=== PATIENT | female | born 1960 | race Caucasian/White ===

== ENCOUNTER 2020-12-08 15:37 | Inpatient (IN) | payer BC ==
[~2020-12-08] VITALS: Ht 154.9 cm; Wt 81.4 kg
[~2020-12-08 15:37] MED LIST: MUPI15CR TP
[2020-12-08 16:43] LABS: BASOPHILS % (AUTO) 0.9 % (0-1); EOSINOPHILS % (AUTO) 0.6 % (0-6); LYMPHOCYTES # (AUTO) 1.3 X10'3 (1.1-4.8); LYMPHOCYTES % (AUTO) 25.8 % (21-51); MEAN CORPUSCULAR HEMOGLOBIN 16.1 PG (27.0-31.0); MEAN CORPUSCULAR HGB CONC 28.1 g/dL (33.0-36.5); MEAN CORPUSCULAR VOLUME 57.3 FL (78-98); MEAN PLATELET VOLUME 8.1 FL (7.4-10.4); MONOCYTES # (AUTO) 0.4 X10'3 (0-0.9); MONOCYTES % (AUTO) 8.3 % (2-12); NEUTROPHILS # (AUTO) 3.2 X10'3 (1.8-7.7); NEUTROPHILS % (AUTO) 64.4 % (42-75); PLATELET COUNT 402 X10'3 (140-440); RED BLOOD COUNT 2.71 X10'6 (4.20-5.60); RED CELL DISTRIBUTION WIDTH 19.6 % (11.5-14.5)
[2020-12-08 16:48] LABS: HEMOGLOBIN 4.4 g/dl (12.0-16.0)
[2020-12-08 16:49] LABS: HEMATOCRIT 15.5 % (35.0-45.0)
[2020-12-08 16:59] LABS: ALANINE AMINOTRANSFERASE 13 U/L (12-78); ALBUMIN 3.8 G/DL (3.4-5.0); ALBUMIN/GLOBULIN RATIO 1.1 (1.1-1.5); ALKALINE PHOSPHATASE 60 IU/L (46-116); ANION GAP 11 (8-16); ASPARTATE AMINO TRANSFERASE 14 U/L (10-37); BILIRUBIN,TOTAL 0.4 MG/DL (0.1-1.0); BLOOD UREA NITROGEN 17 MG/DL (7-18); BUN/CREATININE RATIO 17.3 (6.6-38.0); CALCIUM 8.5 MG/DL (8.5-10.1); CHLORIDE 105 MMOL/L (99-107); CREATININE 0.98 MG/DL (0.40-0.90); GLUCOSE 110 MG/DL (70-104); POTASSIUM 3.9 MMOL/L (3.5-5.1); SODIUM 139 MMOL/L (135-145); TOTAL PROTEIN 7.4 G/DL (6.4-8.2); eGFR 58 ML/MIN
[2020-12-08 17:45] LABS: PARTIAL THROMBOPLASTIN TIME 22 SECONDS (22-32)
[2020-12-08 18:18] LABS: RED BLOOD COUNT 2.69 X10'6 (4.20-5.60); RETICULOCYTE % (AUTO) 2.8 % (0.5-1.5)
[2020-12-08] MEDS ORDERED: pantoprazole 40 MG vial IV ONE (18:35)
[2020-12-08 18:53] LABS: FERRITIN 2 NG/ML (8-252)
[2020-12-08 19:01] LABS: ANISOCYTOSIS 2+; HYPOCHROMASIA 2+; MICROCYTOSIS 3+; PLATELET ESTIMATE NORMAL
--- NOTE | 2020-12-08 19:08 | NUR ---
PT IS DIFFICULT PIV PLACEMENT. PT HAD [address] AND BOTH NOT WORKING PER DAY SHIFT RN. NEW PIV TO [facility] 20G PLACED WITH ULTRASOUND. PTS DAUGHTER GREGORY AT BEDSIDE. BLOOD IS READY TO BE TRANSFUSED. CONSENT IS SIGNED. PT IS POLITE AND COOPERATIVE WITH ALL CARE. PT REPORTS NO HISTORY OF ANEMIA. STATES SOB OVER THE PAST 2 MONTHS. WORSENING OVER THE PAST WEEK. NON SMOKER
[2020-12-08] MEDS ORDERED: NO HOME MEDS (19:11)
[2020-12-08 19:15] LABS: LACTATE DEHYDROGENASE 263 U/L (81-234)
[2020-12-08 19:17] LABS: BASOPHILS % (AUTO) 0.9 % (0-1); EOSINOPHILS % (AUTO) 0.8 % (0-6); LYMPHOCYTES # (AUTO) 1.4 X10'3 (1.1-4.8); LYMPHOCYTES % (AUTO) 30.3 % (21-51); MEAN CORPUSCULAR HEMOGLOBIN 15.9 PG (27.0-31.0); MEAN CORPUSCULAR VOLUME 56.8 FL (78-98); MONOCYTES # (AUTO) 0.4 X10'3 (0-0.9); MONOCYTES % (AUTO) 8.1 % (2-12); NEUTROPHILS # (AUTO) 2.7 X10'3 (1.8-7.7); NEUTROPHILS % (AUTO) 59.9 % (42-75); PLATELET COUNT 358 X10'3 (140-440); RED BLOOD COUNT 2.74 X10'6 (4.20-5.60); RED CELL DISTRIBUTION WIDTH 19.5 % (11.5-14.5); WHITE BLOOD COUNT 4.6 X10'3 (4.5-11.0)
[2020-12-08 19:21] LABS: HEMATOCRIT 15.6 % (35.0-45.0); HEMOGLOBIN 4.4 g/dl (12.0-16.0)
[2020-12-08] MEDS ORDERED: HYDROmorphone inj. 0.5 MG/0.5 ML DISP.SYRIN IV PRN (19:30)
[2020-12-08] MEDS ORDERED: acetaminophen 325mg tablet PO PRN ×2 (19:30)
[2020-12-08] MEDS ORDERED: magnesium hydroxide 30ml (MOM) UD suspension PO PRN (19:30)
[2020-12-08] MEDS ORDERED: HYDROcodone/acetaminophen 5mg/325mg tablet PO PRN (19:30)
[2020-12-08] MEDS ORDERED: ondansetron/PF 4mg/2ml inj IV PRN (19:30)
[2020-12-08] MEDS ORDERED: diphenhydrAMINE 50 mg/ml inj IV PRN (19:30)
[2020-12-08] MEDS ORDERED: diphenhydrAMINE 25mg capsule PO PRN (19:30)
[2020-12-08] MEDS ORDERED: acetaminophen 650mg rectal suppository RC PRN (19:30)
[2020-12-08] MEDS ORDERED: bisacodyl 10mg suppository rectal RC PRN (19:30)
[2020-12-08] MEDS ORDERED: ondansetron 4mg rapidly disintigrating tab PO PRN (19:30)
[2020-12-08] MEDS ORDERED: mag hydrox/Alum hydrox/simeth 30ml oral suspension PO PRN (19:30)
[2020-12-08] MEDS ORDERED: HYDROcodone/acetaminophen 10/325mg tab PO PRN (19:30)
[2020-12-08] MEDS ORDERED: normal saline 1000ml 1,000 ML IV SCH (19:30)
[2020-12-08] MEDS ORDERED: morphine 2 MG/ML inj. syringe IV PRN ×2 (19:30)
[2020-12-08 19:56] VITALS: BP 140/59
[2020-12-08 20:04] LABS: D-DIMER 0.29 MG/L FEU (0-0.50)
[2020-12-08 20:14] VITALS: BP 129/57
[2020-12-08 20:19] LABS: CREATINE KINASE 103 U/L (26-192); LIPASE 190 U/L (73-393); MAGNESIUM 2.1 MG/DL (1.5-2.4)
--- NOTE | 2020-12-08 20:44 | NUR ---
1ST UNIT OF PRBCS STARTED. PT WILL NEED 2ND PIV FOR PROTONIX GTT. AWAITING HOSPITALIST. PT TAKES NO MEDS.
--- NOTE | 2020-12-08 20:49 | NUR ---
LAB CALLING TO [facility] THAT UNABLE TO RESULT AN A1C ON PT D/T THE LOW HGB LEVEL OF THE SAMPEL DRAWN. PT WILL NOT BE ABLE TO HAVE AN ACCURATE A1C DRAWN FOR APROX 3 MONTHS D/T GETTING BLOOD TRANSFUSION.
[2020-12-08 20:56] VITALS: BP 125/52
[2020-12-08] MEDS ORDERED: temazepam 15mg capsule PO PRN (21:00)
[2020-12-08 21:01] LABS: BANDS% (MANUAL) 2 % (0-10); EOSINOPHILS % (MANUAL) 1 % (0-6); LYMPHOCYTES % (MANUAL) 32 % (21-51); MONOCYTES % (MANUAL) 1 % (2-12); NEUTROPHILS % (MANUAL) 64 % (42-75); TOTAL CELLS COUNTED 100
[2020-12-08 21:02] LABS: ANISOCYTOSIS 2+; HYPOCHROMASIA 3+; MICROCYTOSIS 3+; PLATELET ESTIMATE NORMAL
[2020-12-08] MEDS: ferrous sulfate ER tablet 140 MG TABLET.ER PO SCH (21:23)
[2020-12-08] MEDS: pantoprazole 40MG/NS 100ML BAG 100 ML IV SCH (21:24)
[2020-12-08 21:35] LABS: CLARITY,URINE SLIGHTLY CLOUDY (Clear); COLOR,URINE YELLOW (Yellow); GLUCOSE, URINE NEGATIVE (Neg); KETONES,URINE NEGATIVE (Neg); LEUKOCYTE ESTERASE ,URINE MODERATE (Neg); NITRITES, URINE NEGATIVE (Neg); OCCULT BLOOD,URINE NEGATIVE (Neg); PROTEIN,URINE NEGATIVE (Neg); UROBILINOGEN,URINE 0.2 E.U/dL (0.2-1.0)
[2020-12-08] MEDS: docusate sod 100mg capsule PO SCH (21:35)
[2020-12-08] MEDS: metoprolol tartrate 25mg tablet PO SCH (21:35)
[2020-12-08 21:52] LABS: UA COLLECTION TYPE CLN CATCH MIDSTREAM
[2020-12-08 21:54] LABS: BACTERIA,URINE NONE SEEN /HPF (Neg); MUCUS STRANDS NONE SEEN /LPF (Neg); RBC,URINE NONE SEEN /HPF (0-2); SQUAMOUS EPITHELIAL CELL,UR FEW /LPF (FEW)
[2020-12-08 21:55] LABS: RENAL CELLS, URINE FEW /HPF
[2020-12-08 22:18] VITALS: BP 127/59
--- NOTE | 2020-12-08 22:21 | NUR ---
1ST UNIT OF PRBC INFUSED. PT TOLERATED WELL. 2ND UNIT JUST STARTED. PTS DAUGHTER GREGORY REMAINS AT BEDSIDE. PT REPORTS FEELING SLIGHTLY BETTER. PROTONIX GTT INFUSING.
[2020-12-08 23:03] VITALS: BP 137/55
[2020-12-08 23:56] VITALS: BP 140/65
[2020-12-09] VITALS (15 sets, daily range): BP systolic 120–162; BP diastolic 51–105
[2020-12-09] MEDS: pantoprazole 40MG/NS 100ML BAG 100 ML IV SCH ×5 (02:00→21:50)
--- NOTE | 2020-12-09 02:02 | NUR ---
pt is getting her third unit of PRBC and is showing no signs and symptoms of transfusion reaction. pt is resting in bed with vital signs WNL
--- NOTE | 2020-12-09 03:21 | NUR ---
3rd unit rbc transfused. H/H drawn. FFP unit now infusing per orders . pt tolerating transfusion well. Just up to bsc to void. Per bloodbank, paper charting required on FFP transfusion as cumputer not scanning the bag of FFP. 2nd rn check with Jammie Bennett.
[2020-12-09 03:36] LABS: BASOPHILS % (AUTO) 1.3 % (0-1); EOSINOPHILS % (AUTO) 0.9 % (0-6); HEMATOCRIT 27.8 % (35.0-45.0); HEMOGLOBIN 8.4 g/dl (12.0-16.0); LYMPHOCYTES # (AUTO) 0.8 X10'3 (1.1-4.8); LYMPHOCYTES % (AUTO) 24.5 % (21-51); MEAN CORPUSCULAR HEMOGLOBIN 20.8 PG (27.0-31.0); MEAN CORPUSCULAR HGB CONC 30.1 g/dL (33.0-36.5); MEAN CORPUSCULAR VOLUME 69.1 FL (78-98); MEAN PLATELET VOLUME 8.3 FL (7.4-10.4); MONOCYTES # (AUTO) 0.4 X10'3 (0-0.9); MONOCYTES % (AUTO) 13.3 % (2-12); PLATELET COUNT 316 X10'3 (140-440); RED BLOOD COUNT 4.03 X10'6 (4.20-5.60); WHITE BLOOD COUNT 3.4 X10'3 (4.5-11.0)
[2020-12-09 04:28] LABS: ALANINE AMINOTRANSFERASE 14 U/L (12-78); ALBUMIN 3.2 G/DL (3.4-5.0); ALBUMIN/GLOBULIN RATIO 1.1 (1.1-1.5); ALKALINE PHOSPHATASE 49 IU/L (46-116); ANION GAP 9 (8-16); ASPARTATE AMINO TRANSFERASE 11 U/L (10-37); BILIRUBIN,TOTAL 1.2 MG/DL (0.1-1.0); BLOOD UREA NITROGEN 10 MG/DL (7-18); BUN/CREATININE RATIO 13.5 (6.6-38.0); CALCIUM 7.9 MG/DL (8.5-10.1); CHLORIDE 110 MMOL/L (99-107); CREATININE 0.74 MG/DL (0.40-0.90); GLUCOSE 100 MG/DL (70-104); POTASSIUM 3.8 MMOL/L (3.5-5.1); SODIUM 143 MMOL/L (135-145); TOTAL CARBON DIOXIDE 24.2 MMOL/L (24-32); TOTAL PROTEIN 6.2 G/DL (6.4-8.2); eGFR 80 ML/MIN
[2020-12-09 04:31] LABS: CHOL/HDL RATIO 3.7 (0.00-4.99); CHOLESTEROL 157 MG/DL (0-200); HDL CHOLESTEROL 43 MG/DL (35-60); LDL CHOLESTEROL 103 MG/DL (50-100); TRIGLYCERIDES 99 MG/DL (20-135)
[2020-12-09 04:36] LABS: ANISOCYTOSIS 3+; ELLIPTOCYTES 1+; HYPOCHROMASIA 2+; MICROCYTOSIS 2+; PLATELET ESTIMATE NORMAL; SPHEROCYTES 1+
[2020-12-09 04:37] LABS: BURR CELLS 1+; SCHISTOCYTES 1+
[2020-12-09 04:38] LABS: RED CELL DISTRIBUTION WIDTH 31.5 % (11.5-14.5)
--- NOTE | 2020-12-09 05:51 | NUR ---
FFP INFUSION COMMPLETED. VSS. GIVEN ADTL BLANKETS. AWAITING IPA.
[2020-12-09] MEDS: metoprolol tartrate 25mg tablet PO SCH (06:49)
[2020-12-09] MEDS: docusate sod 100mg capsule PO SCH ×2 (06:49→21:49)
[2020-12-09] MEDS: ferrous sulfate ER tablet 140 MG TABLET.ER PO SCH ×2 (06:52→08:00)
[2020-12-09] MEDS ORDERED: ferrous sulfate ER tablet 140 MG TABLET.ER PO ONE (07:55)
[2020-12-09] MEDS: atorvastatin 20mg tablet PO SCH (08:17)
[2020-12-09] MEDS: nitroGLYCERIN 0.2mg/hour patch TD SCH (08:17)
[2020-12-09] MEDS ORDERED: fentaNYL/PF 50MCG/1 ML 2ML syringe ONE (13:25)
[2020-12-09] MEDS ORDERED: MIDAZolam 1 MG/ML 5ML VIAL ONE (13:25)
[2020-12-09] MEDS ORDERED: LIDOcaine Viscous 15ml cup ONE (13:26)
[2020-12-09 20:41] LABS: % IRON SATURATION 3 % (11-46); IRON 14 UG/DL (49-151); TOTAL IRON BINDING CAPACITY 480 UG/DL (259-388)
[2020-12-09] MEDS ORDERED: FERROUS SULFATE 142 MG TABLET.ER (45mg elemental) PO SCH (21:15)
[2020-12-09 22:22] LABS: OCCULT BLOOD STOOL NEGATIVE (Neg)
[2020-12-10] MEDS: pantoprazole 40MG/NS 100ML BAG 100 ML IV SCH ×2 (01:00→08:03)
[2020-12-10 02:00] VITALS: BP_SYST 127; BP_SYST 142; BP_DIAS 53; BP_DIAS 72
--- NOTE | 2020-12-10 05:59 | NUR ---
Problems reprioritized. Patient report given, questions answered & plan of care reviewed with Naina KUMAR.
--- NOTE | 2020-12-10 06:14 | NUR ---
Patient in room PCU 3014. I have received report from Dustin KUMAR and had the opportunity to ask questions and assume patient care. Pt alert to voice. no s/sx acute distress
[2020-12-10 06:21] LABS: BASOPHILS % (AUTO) 0.9 % (0-1); EOSINOPHILS # (AUTO) 0.1 X10'3 (0-0.9); EOSINOPHILS % (AUTO) 3.9 % (0-6); HEMATOCRIT 25.7 % (35.0-45.0); HEMOGLOBIN 7.8 g/dl (12.0-16.0); LYMPHOCYTES # (AUTO) 1.2 X10'3 (1.1-4.8); LYMPHOCYTES % (AUTO) 31.4 % (21-51); MEAN CORPUSCULAR HEMOGLOBIN 20.6 PG (27.0-31.0); MEAN CORPUSCULAR HGB CONC 30.3 g/dL (33.0-36.5); MEAN CORPUSCULAR VOLUME 68.1 FL (78-98); MEAN PLATELET VOLUME 8.3 FL (7.4-10.4); MONOCYTES # (AUTO) 0.5 X10'3 (0-0.9); MONOCYTES % (AUTO) 14.5 % (2-12); NEUTROPHILS # (AUTO) 1.9 X10'3 (1.8-7.7); NEUTROPHILS % (AUTO) 49.3 % (42-75); PLATELET COUNT 268 X10'3 (140-440); RED BLOOD COUNT 3.78 X10'6 (4.20-5.60); RED CELL DISTRIBUTION WIDTH 30.8 % (11.5-14.5); WHITE BLOOD COUNT 3.8 X10'3 (4.5-11.0)
[2020-12-10 06:27] LABS: ALANINE AMINOTRANSFERASE 13 U/L (12-78); ALKALINE PHOSPHATASE 51 IU/L (46-116); ANION GAP 9 (8-16); ASPARTATE AMINO TRANSFERASE 11 U/L (10-37); BILIRUBIN,TOTAL 0.9 MG/DL (0.1-1.0); BLOOD UREA NITROGEN 7 MG/DL (7-18); BUN/CREATININE RATIO 9.9 (6.6-38.0); CALCIUM 8.2 MG/DL (8.5-10.1); CHLORIDE 111 MMOL/L (99-107); CREATININE 0.71 MG/DL (0.40-0.90); GLUCOSE 100 MG/DL (70-104); POTASSIUM 4.1 MMOL/L (3.5-5.1); SODIUM 145 MMOL/L (135-145); TOTAL CARBON DIOXIDE 24.8 MMOL/L (24-32); TOTAL PROTEIN 6.1 G/DL (6.4-8.2); eGFR 84 ML/MIN
[2020-12-10 07:29] LABS: PLATELET ESTIMATE NORMAL
[2020-12-10 07:30] LABS: ANISOCYTOSIS 3+; HYPOCHROMASIA 2+; MICROCYTOSIS 2+; TEAR DROP CELLS FEW
[2020-12-10 07:31] LABS: POLYCHROMASIA FEW
[2020-12-10 07:39] VITALS: BP 144/61
[2020-12-10] MEDS: nitroGLYCERIN 0.2mg/hour patch TD SCH (08:00)
[2020-12-10] MEDS: atorvastatin 20mg tablet PO SCH (08:03)
[2020-12-10] MEDS: docusate sod 100mg capsule PO SCH (08:03)
[2020-12-10] MEDS: metoprolol tartrate 25mg tablet PO SCH (08:03)
[2020-12-10] MEDS ORDERED: PANT-47 PO (08:47)
[2020-12-10] MEDS ORDERED: FERR-116 PO (08:50)
[2020-12-10 11:00] VITALS: BP 128/66
--- NOTE | 2020-12-10 11:50 | NUR ---
pt stable for discharge per MD order. All discharge instructions reviewed with patient and all questions answered. follow up appointment will be made by pt. Pt requested telephone number of [facility]. Telephone numbers for both viry and malou given. new prescriptions escripted to [facility] in [place]. PIV discontinued x2. both cannula intact. funeral planning counselor discontinued. belongings collected including cell phone, manager heavy duty, and upper dentures and sent with patient. pt ambulated to [facility], accompanied by this nurse, where she left facility in a private vehicle. pt without s/sx acute distress.
== END 2020-12-10 11:52 | disposition home or self-care (01) | DRG 378 ==
LOC: ER 15:38 → ED HOLD 19:30 → PCU 3S 12-09 20:15
PROVIDERS: ADMIT Family Medicine; ATTEND Internal Medicine
PROC: 30233N1 Transfusion of Nonautologous Red Blood Cells into Peripheral Vein, Percutaneous Approach (ICD-10-PCS; 2020-12-08)
PROC: 0DB68ZX Excision of Stomach, Via Natural or Artificial Opening Endoscopic, Diagnostic (ICD-10-PCS; principal; 2020-12-09)
DX: K29.61 Other gastritis with bleeding (principal); N17.9 Acute kidney failure, unspecified; D50.9 Iron deficiency anemia, unspecified; E86.0 Dehydration; I10 Essential (primary) hypertension; K21.9 Gastro-esophageal reflux disease without esophagitis; K44.9 Diaphragmatic hernia without obstruction or gangrene
CPT/HCPCS: 36415; 36430; 43239; 71045; 80053; 80061; 81001; 82272; 82550; 82607; 82728; 83540; 83550; 83615; 83690; 83735; 83880; 84100; 84443; 84484; 85007; 85008; 85025; 85045; 85379; 85610; 85730; 86885; 86900; 86901; 86920; 87081; 87088; 93005; 99152; 99285; A4620; C9113; G0378; J2250; J3010; J7030; J7040; P9016; P9059